=== PATIENT | female | born 1995 | race Two or more races ===

== ENCOUNTER 2019-05-06 09:13 | Emergency (ER) | payer SELFPAY ==
[~2019-05-06] VITALS: Ht 144.8 cm; Wt 59.8 kg
--- NOTE | 2019-05-06 09:50 | NUR ---
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
[2019-05-06 10:02] LABS: BASOPHILS # (AUTO) 0.03 x10^3/uL (0-0.1); BASOPHILS % (AUTO) 1 % (0-1); EOSINOPHILS # (AUTO) 0.07 x10^3/uL (0-0.4); EOSINOPHILS % (AUTO) 1 % (1-7); LYMPHOCYTES # (AUTO) 2.19 x10^3/uL (1-3.4); LYMPHOCYTES % (AUTO) 31 % (22-44); MD NO; MEAN CORPUSCULAR HEMOGLOBIN 29.3 pg (27.0-34.8); MEAN CORPUSCULAR HGB CONC 33.5 g/dL (32.4-35.8); MEAN CORPUSCULAR VOLUME 87.2 fL (80-100); MEAN PLATELET VOLUME 9.1 fL (7.4-10.4); MONOCYTES % (AUTO) 6 % (2-9); NEUTROPHILS # (AUTO) 4.41 x10^3/uL (1.8-6.8); NEUTROPHILS % (AUTO) 62 % (42-75); PLATELET COUNT 333 x10^3/uL (130-400); RED BLOOD COUNT 4.65 x10^6/uL (3.82-5.3); RED CELL DISTRIBUTION WIDTH 13.3 % (9.6-15.2)
[2019-05-06 10:10] LABS: ALBUMIN 3.6 g/dL (3.4-5.0); ANION GAP 9 mmol/L (5-15); CALCIUM 8.2 mg/dL (8.5-10.1); CHLORIDE 108 mmol/L (98-107)
[2019-05-06 10:28] LABS: ALANINE AMINOTRANSFERASE 11 U/L (12-78); ALKALINE PHOSPHATASE 67 U/L (45-117); BILIRUBIN,TOTAL 0.4 mg/dL (0.2-1.0); CREATININE 0.69 mg/dL (0.55-1.02); TOTAL PROTEIN 7.5 g/dL (6.4-8.2)
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
--- NOTE | 2019-05-06 10:40 | NUR ---
pt to US at this time, nadn at time of transport.
[2019-05-06 10:54] LABS: MICROSCOPIC NOT IND
[2019-05-06 10:57] LABS: CULTURE INDICATED? NO
--- NOTE | 2019-05-06 11:30 | NUR ---
REPORT TO CONOR JOHNSTON.
[2019-05-06 12:05] VITALS: BP 116/59
== END 2019-05-06 12:07 | disposition home or self-care (01) ==
LOC: ED 10:21
DX: O20.0 Threatened abortion (principal)
CPT/HCPCS: 36415; 76801; 80053; 81003; 84702; 85025; 86901; 99284

== ENCOUNTER 2019-05-08 15:22 | Emergency (ER) | payer SELFPAY ==
[~2019-05-08] VITALS: Ht 144.8 cm; Wt 58.6 kg
--- NOTE | 2019-05-08 16:23 | NUR ---
THIS IS A 23 YO FEMALE WHO PRESENTED TO ER C/O NOTING BLOOD APPROX 30 MINUTES AGO. SMALL AMOUNT OF BLOOD WITH A SMALL 1CM CLOT NOTED BY RN WHEN PT SHOWED RN. PT AO X 4. SKIN PWD. RESP EVEN AND UNLABORED.
[2019-05-08 16:56] LABS: BASOPHILS # (AUTO) 0.05 x10^3/uL (0-0.1); BASOPHILS % (AUTO) 1 % (0-1); EOSINOPHILS # (AUTO) 0.07 x10^3/uL (0-0.4); EOSINOPHILS % (AUTO) 1 % (1-7); LYMPHOCYTES # (AUTO) 2.39 x10^3/uL (1-3.4); LYMPHOCYTES % (AUTO) 33 % (22-44); MD NO; MEAN CORPUSCULAR HGB CONC 33.2 g/dL (32.4-35.8); MEAN CORPUSCULAR VOLUME 87.5 fL (80-100); MEAN PLATELET VOLUME 8.9 fL (7.4-10.4); MONOCYTES # (AUTO) 0.53 x10^3/uL (0.2-0.8); MONOCYTES % (AUTO) 7 % (2-9); NEUTROPHILS # (AUTO) 4.17 x10^3/uL (1.8-6.8); NEUTROPHILS % (AUTO) 58 % (42-75); PLATELET COUNT 323 x10^3/uL (130-400); RED BLOOD COUNT 4.71 x10^6/uL (3.82-5.3); RED CELL DISTRIBUTION WIDTH 13.5 % (9.6-15.2)
--- NOTE | 2019-05-08 17:30 | NUR ---
PT IN IMAGING.
--- NOTE | 2019-05-08 17:50 | NUR ---
PT CURRENTLY RESTING ON [employer]. NAD NOTED. SKIN PWD. RESP EVEN AND UNLABORED. PT AWARE THAT WE ARE WAITING FOR LAB/IMAGING RESULTS. SIGNIFICANT OTHER AT BEDSIDE. CALL LIGHT WITHIN REACH. WILL CONT TO MONITOR PT.
[2019-05-08 18:25] VITALS: BP 122/72
== END 2019-05-08 18:26 | disposition home or self-care (01) ==
LOC: ED 17:44
DX: O03.4 Incomplete spontaneous abortion without complication (principal); Z3A.08 8 weeks gestation of pregnancy
CPT/HCPCS: 36415; 76801; 84702; 85025; 99284